=== PATIENT | male | born 1960 | race Caucasian/White ===

== ENCOUNTER 2019-07-19 01:17 | Emergency (ER) | payer BC ==
[~2019-07-19] VITALS: Ht 200.7 cm; Wt 101.0 kg
[2019-07-19] MEDS ORDERED: SODIUM CHLORIDE 0.9% 1,000ML IVBOLUS ONE (01:30)
[2019-07-19] MEDS ORDERED: SODIUM CHLORIDE FLUSH 10ML SYR IVF ONE (01:30)
--- NOTE | 2019-07-19 01:48 | NUR ---
IVF BOLUS INFUSING. BLOOD DRAWN AND SENT. EKG AT BEDSIDE.
[2019-07-19 02:21] LABS: BASOPHILS % (AUTO) 0 % (0-1); EOSINOPHILS # (AUTO) 0.19 x10^3/uL (0-0.4); EOSINOPHILS % (AUTO) 2 % (1-7); LYMPHOCYTES # (AUTO) 0.35 x10^3/uL (1-3.4); LYMPHOCYTES % (AUTO) 4 % (22-44); MD NO; MEAN CORPUSCULAR HEMOGLOBIN 28.6 pg (27.5-34.5); MEAN CORPUSCULAR HGB CONC 33.2 g/dL (33.2-36.2); MEAN CORPUSCULAR VOLUME 86.1 fL (81-97); MEAN PLATELET VOLUME 9.4 fL (7.4-10.4); MONOCYTES # (AUTO) 0.36 x10^3/uL (0.2-0.8); MONOCYTES % (AUTO) 4 % (2-9); NEUTROPHILS # (AUTO) 8.04 x10^3/uL (1.8-6.8); NEUTROPHILS % (AUTO) 90 % (42-75); PLATELET COUNT 163 x10^3/uL (130-400); RED BLOOD COUNT 4.94 x10^6/uL (4.38-5.82); RED CELL DISTRIBUTION WIDTH 14.4 % (9.4-14.8)
[2019-07-19 02:24] LABS: ALANINE AMINOTRANSFERASE 39 U/L (12-78); ANION GAP 6 mmol/L (5-15); CALCIUM 9.1 mg/dL (8.5-10.1); CHLORIDE 112 mmol/L (98-107); CREATININE 0.96 mg/dL (0.7-1.3)
[2019-07-19 02:27] LABS: ALKALINE PHOSPHATASE 111 U/L (45-117); BILIRUBIN,TOTAL 0.6 mg/dL (0.2-1.0); TOTAL PROTEIN 7.5 g/dL (6.4-8.2)
--- NOTE | 2019-07-19 02:29 | NUR ---
PT AMBULATED TO THE RESTROOM WITH STEADY GAIT.
--- NOTE | 2019-07-19 02:35 | NUR ---
PT AMBULATED WITH STEADY GAIT AND PROVIDED URINE SAMPLE.
[2019-07-19 03:00] LABS: MICROSCOPIC NOT IND
[2019-07-19 03:20] VITALS: BP 124/69
== END 2019-07-19 03:51 | disposition home or self-care (01) ==
LOC: ED 02:22
DX: M62.830 Muscle spasm of back (principal); R94.31 Abnormal electrocardiogram [ECG] [EKG]; M79.604 Pain in right leg; M79.605 Pain in left leg; I10 Essential (primary) hypertension
CPT/HCPCS: 36415; 71045; 80053; 81003; 83735; 84443; 85025; 93005; 99285; J7030